=== PATIENT | male | born 1940 | race Caucasian/White ===

== ENCOUNTER → 2020-10-12 | Outpatient (CLI) | payer OTHER ==
[~2020-10-12] MED LIST: CETIRIZINE HCL10 MG PO; COZAAR50 MG PO; DOXAZOSIN MESYLA4 MG PO; FINASTERIDE5 MG PO; LOVASTATIN40 MG PO; MONTELUKAST SOD10 MG PO; SYMBICORT 16010.2 GM INH; VENTOLIN HFA 66.7 GM INH
== END ==
LOC: CATH 10:00 → EDSTATUS 10:00 → CATH 10:09
DX: I08.3 Combined rheumatic disorders of mitral, aortic and tricuspid valves (principal); F17.200 Nicotine dependence, unspecified, uncomplicated; Z20.822 Contact with and (suspected) exposure to COVID-19; Z72.89 Other problems related to lifestyle; Z79.899 Other long term (current) drug therapy
CPT/HCPCS: 87635; 93005; 93312; 93320; J1200; J2250; J2310; J3010; J7120

== ENCOUNTER → 2021-03-15 | Outpatient (CLI) | payer OTHER | LOC: EXRD 10:33 | DX: M25.511 Pain in right shoulder (principal); W19.XXXA Unspecified fall, initial encounter | CPT/HCPCS: 73030 ==